=== PATIENT | female | born 1945 | race Caucasian/White ===

== ENCOUNTER 2018-04-23 10:45 | Emergency (ER) | payer MEDICARE ==
[2018-04-23] MEDS ORDERED: LORAZEPAM INJ 2 MG/1 ML VIAL IM ONE (11:14)
--- NOTE | 2018-04-23 11:15 | ER Document Report ---
ED General - General Chief Complaint: Psych Problem Stated Complaint: IVC Time Seen by Provider: 04/23/18 11:10 Mode of Arrival: Ambulatory Information source: Patient, Relative Notes: 72-year-old female with hypertension, renal disease, depression presents via private vehicle with her who is concerned for increased paranoia, increased anxiety, increased depression, auditory hallucinations and suicidal ideation. reports that since he was recently diagnosed with lung cancer the patient has become more anxious. He states that she consistently says that "they are telling me to kill my family". He reports that she has had auditory hallucinations in the past. He also states that patient has had suicidal ideation with a plan to slit her wrists. Patient is crying and repeatedly saying "no one believes me, no one believes me". Patient has had previous suicide attempts with overdosing on medications. is unsure if she has been taking her psychiatric medications. She states that she is taking citalopram. reports that her last psychiatric hospitalization was approximately 2 years ago when they lived in [place]. Patient is difficult to obtain a history. She does not answer any questions directly. She just repeatedly says "I'll only kill myself if something happens to him". TRAVEL OUTSIDE OF THE [place] IN LAST 30 DAYS: No - HPI Onset: Other Onset/Duration: Gradual, Worse Quality of pain: No pain Severity: None Associated symptoms: None Exacerbated by: Denies Relieved by: Denies Similar symptoms previously: Yes Recently seen / treated by doctor: No - Related Data Allergies/Adverse Reactions: aripiprazole [From Abilify] Allergy (Verified 04/23/18 11:11) Penicillins Allergy (Verified 04/23/18 11:11) prochlorperazine [From Compazine] Allergy (Verified 04/23/18 11:11) Past Medical History - General Information source: Patient, [facility] Records - Social History Smoking Status: Never Smoker Frequency of alcohol use: Rare Drug Abuse: None Lives with: Spouse/Significant other Family History: Reviewed & Not Pertinent Patient has suicidal ideation: Yes Patient has homicidal ideation: No - Past Medical History Cardiac Medical History: Reports: Hx Hypertension Renal/ Medical History: Denies: Hx Peritoneal Dialysis Psychiatric Medical History: Reports: Hx Depression Review of Systems - Review of Systems -: Yes ROS unobtainable due to patient's medical condition Physical Exam - Vital signs Vitals: Temp Pulse Resp BP Pulse Ox 97.4 F 83 18 168/88 H 94 04/23/18 10:53 04/23/18 10:53 04/23/18 10:53 04/23/18 10:53 04/23/18 10:53 Interpretation: Hypertensive. No: Febrile - Notes Notes: PHYSICAL EXAMINATION: GENERAL: Anxious HEAD: Atraumatic, normocephalic. EYES: Pupils equal round and reactive to light, extraocular movements intact, conjunctiva are normal. ENT: Nares patent, oropharynx clear without exudates. Moist mucous membranes. NECK: Normal range of motion, supple without lymphadenopathy LUNGS: Breath sounds clear to auscultation bilaterally and equal. No wheezes rales or rhonchi. HEART: Regular rate and rhythm without murmurs ABDOMEN: Soft, nontender, nondistended abdomen. No guarding, no rebound. No masses appreciated. Female : deferred Musculoskeletal: Normal range of motion, no pitting or edema. No cyanosis. NEUROLOGICAL: Cranial nerves grossly intact. Normal speech, normal gait. Normal sensory, motor exams PSYCH: Tearful, unable to direct. SKIN: Warm, Dry, normal turgor, no rashes or lesions noted. Course - Re-evaluation Re-evalutation: Laboratory 04/23/18 04/23/18 04/23/18 12:40 12:40 13:15 WBC 9.9 RBC 4.62 Hgb 13.6 Hct 39.8 MCV 86 MCH 29.4 MCHC 34.1 RDW 13.6 Plt Count 228 Seg Neutrophils % 68.4 Lymphocytes % 20.3 Monocytes % 8.5 Eosinophils % 2.1 Basophils % 0.7 Absolute Neutrophils 6.8 Absolute Lymphocytes 2.0 Absolute Monocytes 0.8 Absolute Eosinophils 0.2 Absolute Basophils 0.1 Sodium 139.4 Potassium 4.6 Chloride 107 Carbon Dioxide 24 Anion Gap 8 BUN 23 H Creatinine 0.92 Est GFR ( Amer) > 60 Est GFR (Non-Af Amer) > 60 Glucose 98 Calcium 9.1 Total Bilirubin 0.9 Direct Bilirubin 0.5 H Neonat Total Bilirubin Not Reportable Neonat Direct Bilirubin Not Reportable Neonat Indirect Bili Not Reportable AST 32 ALT 31 Alkaline Phosphatase 114 Total Protein 7.5 Albumin 4.0 Urine Color YELLOW Urine Appearance CLEAR Urine pH 5.0 Ur Specific [place] 1.015 Urine Protein NEGATIVE Urine Glucose (UA) NEGATIVE Urine Ketones NEGATIVE Urine Blood NEGATIVE Urine Nitrite NEGATIVE Urine Bilirubin NEGATIVE Urine Urobilinogen NEGATIVE Ur Leukocyte Esterase TRACE H Urine WBC (Auto) 4 Urine RBC (Auto) 1 U Hyaline Cast (Auto) 1 Squamous Epi Cells Auto <1 Urine Mucus (Auto) RARE Urine Ascorbic Acid NEGATIVE Salicylates < 1.0 L Urine Opiates Screen Urine Methadone Screen Acetaminophen < 10 L Ur Barbiturates Screen Ur Phencyclidine Scrn Ur Amphetamines Screen U Benzodiazepines Scrn Urine Cocaine Screen U Marijuana (THC) Screen Serum Alcohol < 10 04/23/18 13:15 WBC RBC Hgb Hct MCV MCH MCHC RDW Plt Count Seg Neutrophils % Lymphocytes % Monocytes % Eosinophils % Basophils % Absolute Neutrophils Absolute Lymphocytes Absolute Monocytes Absolute Eosinophils Absolute Basophils Sodium Potassium Chloride Carbon Dioxide Anion Gap BUN Creatinine Est GFR ( Amer) Est GFR (Non-Af Amer) Glucose Calcium Total Bilirubin Direct Bilirubin Neonat Total Bilirubin Neonat Direct Bilirubin Neonat Indirect Bili AST ALT Alkaline Phosphatase Total Protein Albumin Urine Color Urine Appearance Urine pH Ur Specific [place] Urine Protein Urine Glucose (UA) Urine Ketones Urine Blood Urine Nitrite Urine Bilirubin Urine Urobilinogen Ur Leukocyte Esterase Urine WBC (Auto) Urine RBC (Auto) U Hyaline Cast (Auto) Squamous Epi Cells Auto Urine Mucus (Auto) Urine Ascorbic Acid Salicylates Urine Opiates Screen NEGATIVE Urine Methadone Screen NEGATIVE Acetaminophen Ur Barbiturates Screen NEGATIVE Ur Phencyclidine Scrn NEGATIVE Ur Amphetamines Screen NEGATIVE U Benzodiazepines Scrn NEGATIVE Urine Cocaine Screen NEGATIVE U Marijuana (THC) Screen NEGATIVE Serum Alcohol Head CT 04/23/18 11:13 IMPRESSION: NORMAL BRAIN CT WITHOUT CONTRAST. EVIDENCE OF ACUTE STROKE: NO. 72-year-old female with hypertension, renal disease, depression presents via private vehicle with her who is concerned for increased paranoia, increased anxiety, increased depression, auditory hallucinations and suicidal ideation. reports that since he was recently diagnosed with lung cancer the patient has become more anxious. He states that she consistently says that "they are telling me to kill my family". He reports that she has had auditory hallucinations in the past. He also states that patient has had suicidal ideation with a plan to slit her wrists. Patient is crying and repeatedly saying "no one believes me, no one believes me". Patient has had previous suicide attempts with overdosing on medications. [facility]VS upon arrival. 04/23/18 15:01 IVC paperwork initiated. Patient evaluated by psych team. 2 mg of Ativan IM was administered. On reevaluation patient is calmer, resting comfortably. Continues to have paranoid delusions of admitting to committing a murder that she does not think she committed. 04/23/18 15:28 Patient medically cleared. 04/23/18 22:35 Patient accepted to psychiatric facilty. Home medications verified by pharmy and ordered. I did not continue the patient's home Lunesta. Patiwtent has remain stable and cooperative throughout her ED course. Transfer likely tomorrow. 04/23/18 22:38 - Vital Signs Vital signs: Temp Pulse Resp BP Pulse Ox 97.4 F 83 18 168/88 H 94 04/23/18 10:53 04/23/18 10:53 04/23/18 10:53 04/23/18 10:53 04/23/18 10:53 - Laboratory Result Diagrams: 04/23/18 12:40 04/23/18 12:40 Laboratory results interpreted by me: 04/23/18 04/23/18 12:40 13:15 BUN 23 H Direct Bilirubin 0.5 H Ur Leukocyte Esterase TRACE H Salicylates < 1.0 L Acetaminophen < 10 L - Diagnostic Test Radiology reviewed: Image reviewed, Reports reviewed - EKG Interpretation by Me EKG shows normal: Sinus rhythm Rate: Normal Rhythm: NSR When compared to previous EKG there are: Previous EKG unavailable Discharge - Discharge Clinical Impression: Suicidal ideation, Paranoid delusion, Elevated blood pressure reading Condition: Good Disposition: PSYCH HOSP/UNIT Forms: Elevated Blood Pressure
--- NOTE | 2018-04-23 12:10 | RADIOLOGY REPORT (SQ) ---
EXAM DESCRIPTION: CT HEAD WITHOUT COMPLETED DATE/TIME: 04/23/2018 11:57 am REASON FOR STUDY: questionable dementia COMPARISON: None. TECHNIQUE: Axial images acquired through the brain without intravenous contrast. Images reviewed wi th bone, brain and subdural windows. Images stored on PACS. All CT scanners at this facility use dose modulation, iterative reconstruction, and/or weight based d osing when appropriate to reduce radiation dose to as low as reasonably achievable (ALARA). [facility]: Dose Right [facility]: CareDose [facility]: Dose Right [facility]: Teradose 4D [facility]: Sumerian RADIATION DOSE: CT Rad equipment meets quality standard of care and radiation dose reduction techniq ues were employed. CTDIvol: 53.2 mGy. DLP: 1070 mGy-cm. mGy. LIMITATIONS: None. FINDINGS: VENTRICLES: Normal size and contour. CEREBRUM: No masses. No hemorrhage. No midline shift. No evidence for acute infarction. Normal gra y/white matter differentiation. No areas of low density in the white matter. CEREBELLUM: No masses. No hemorrhage. No alteration of density. No evidence for acute infarction. EXTRAAXIAL SPACES: No fluid collections. No masses. ORBITS AND GLOBE: No intra- or extraconal masses. Normal contour of globe without masses. CALVARIUM: No fracture. PARANASAL SINUSES: No fluid or mucosal thickening. SOFT TISSUES: No mass or hematoma. OTHER: No other significant finding. IMPRESSION: NORMAL BRAIN CT WITHOUT CONTRAST. EVIDENCE OF ACUTE STROKE: NO. COMMENT: Quality ID # [id number]: Final reports with documentation of one or more dose reduction techniques (e.g., Automated exposure control, adjustment of the mA and/or kV according to patient size, use of iterative reconstruction technique) TECHNICAL DOCUMENTATION: JOB ID: [id number] [employer]- All Rights Reserved Reading location - IP[facility]workstation [facility]: [email or web address]
[2018-04-23 12:52] LABS: ABSOLUTE BASOPHILS # (AUTO) 0.1 10^3/uL (0.0-0.2); ABSOLUTE EOSINOPHILS # (AUTO) 0.2 10^3/uL (0.0-0.6); ABSOLUTE MONOCYTES (AUTO) 0.8 10^3/uL (0.1-1.4); ABSOLUTE NEUT (AUTO) 6.8 10^3/uL (1.7-8.2); BASOPHILS % (AUTO) 0.7 % (0-2); EOSINOPHILS % (AUTO) 2.1 % (0-6); HEMATOCRIT 39.8 % (36.0-47.0); HEMOGLOBIN 13.6 g/dL (12.0-15.5); LYMPHOCYTES % (AUTO) 20.3 % (13-45); MEAN CORPUSCULAR HEMOGLOBIN 29.4 pg (27.0-33.4); MEAN CORPUSCULAR HGB CONC 34.1 g/dL (32.0-36.0); MEAN CORPUSCULAR VOLUME 86 fl (80-97); MONOCYTES % (AUTO) 8.5 % (3-13); PLATELET COUNT 228 10^3/uL (150-450); RED BLOOD COUNT 4.62 10^6/uL (3.72-5.28); RED CELL DISTRIBUTION WIDTH 13.6 % (11.5-14.0); SEGMENTED NEUTROPHILS % (AUTO) 68.4 % (42-78); TOTAL CELLS COUNTED % (AUTO) 100 %; WHITE BLOOD COUNT 9.9 10^3/uL (4.0-10.5)
--- NOTE | 2018-04-23 13:09 | EKG REPORT ---
SEVERITY:- NORMAL ECG - SINUS RHYTHM : Confirmed by: German Edwards MD 23-Apr-2018 13:08:55
[2018-04-23 13:14] LABS: ACETAMINOPHEN < 10 ug/mL (10-30); ALANINE AMINOTRANSFERASE 31 U/L (9-52); ALCOHOL < 10 mg/dL (NONE DETECTED); ALKALINE PHOSPHATASE 114 U/L (38-126); ANION GAP 8 (5-19); ASPARTATE AMINO TRANSFERASE 32 U/L (14-36); BILIRUBIN,DIRECT 0.5 mg/dL (0.0-0.4); BILIRUBIN,TOTAL 0.9 mg/dL (0.2-1.3); BLOOD UREA NITROGEN 23 mg/dL (7-20); CALCIUM 9.1 mg/dL (8.4-10.2); CARBON DIOXIDE 24 mmol/L (22-30); CHLORIDE 107 mmol/L (98-107); GLUCOSE 98 mg/dL (75-110); POTASSIUM 4.6 mmol/L (3.6-5.0); SALICYLATE < 1.0 mg/dL (2.0-20.0); SODIUM 139.4 mmol/L (137-145); TOTAL PROTEIN 7.5 g/dL (6.3-8.2)
[2018-04-23 13:37] LABS: APPEARANCE,URINE CLEAR; BILIRUBIN,URINE NEGATIVE (NEGATIVE); COLOR,URINE YELLOW; GLUCOSE, URINE NEGATIVE (NEGATIVE); KETONES,URINE NEGATIVE (NEGATIVE); LEUKOCYTE ESTERASE,URINE TRACE (NEGATIVE); NITRITE,URINE NEGATIVE (NEGATIVE); PROTEIN,URINE NEGATIVE (NEGATIVE); URINE SPECIFIC GRAVITY 1.015; UROBILINOGEN,URINE NEGATIVE mg/dL (<2.0)
[2018-04-23 13:52] LABS: URINE AMPHETAMINES SCREEN NEGATIVE; URINE BARBITURATES SCREEN NEGATIVE; URINE BENZODIAZEPINES SCREEN NEGATIVE; URINE COCAINE SCREEN NEGATIVE; URINE METHADONE SCREEN NEGATIVE; URINE PHENCYCLIDINE SCREEN NEGATIVE
[2018-04-23 14:02] LABS: URINE MARIJUANA (THC) SCREEN NEGATIVE
[2018-04-23] MEDS ORDERED: ALPRAZOLAM 0.5 MG TABLET PO PRN ×2 (18:51→19:10)
[2018-04-23] MEDS: CARVEDILOL 12.5 MG TABLET PO SCH (22:51)
[2018-04-23] MEDS ORDERED: BUPROPION HCL 75 MG TABLET ONE (22:52)
[2018-04-23] MEDS: BUPROPION HCL 75 MG TABLET PO SCH (23:01)
[2018-04-24] MEDS ORDERED: LANSOPRAZOLE 15 MG TAB.RAP.DR PO SCH (06:00)
--- NOTE | 2018-04-24 07:30 | PSYCHOLOGICAL NOTE ---
Psych Note - Psych Note Psych Note: Reason for Consult: psychosis 72-year-old female with hypertension, renal disease, depression presents via private vehicle with her who is concerned for increased paranoia, increased anxiety, increased depression, auditory hallucinations and suicidal ideation. Patient is observed sitting in the lobby with uncontrolled crying Patient is observed to be calmer (patient was given medication previously). She reports "I don't want to be here" and disclosed she has a headache and stressed. She disclosed her is sick and "someone is out to kill me because I confessed to murders I didn't do....I now know I didn't kill them...I don't know why I confessed to doing it...they wont believe me....I'm not paranoid, they are going to kill me because of it....no one believes....I don't want tot be here" Patient became very agitated so clinician ended evaluation. While patient was being processed through [facility] to get a room, the clinician spoke to the patient's privately. He disclosed the patient has a long history of mental health with 4 previous inpatient treatment stays while they lived in [place]. He reports they moved down here to [place] this last July to be closer to their son and to give the patient a fresh start. He reports the patient has been doing really well but unfortunately he was been diagnosis with lung cancer and will be starting chemotherapy and the patient has not been able to cope with the news. He continued to disclose since the patient found out she has been crying uncontrollably, with an increase of her long standing symptoms. HE disclosed the patient, "many years ago", went to the police and confessed she committed mass murder. He reports this is untrue but; "she really believed that she did." Since that time, the patient has evolved into believing people are now trying to kill her and the family because of the fictional murders. He reports he has many different diagnoses over the years by different doctors so doesn't really know what the patient has. Patient is alert and orientated to person, place and time. Mood is anxious with tearful affect. Patient denies suicidal and homicidal ideation. Paranoid delusions are noted and thought content is fixated on her delusions. thought processes are organized and linear however illogical. eye contact was good. conversational speech started normal then became difficult to understand because of crying. intellectual abilities appear to be average range. concentration and attention are poor. insight, judgment and impulse control or poor. 298.9 (F29) unspecified psychosis Impression/Plan: Patient is recommended for IVC. Patient discloses paranoid delusions and visibly distraught. Patient was accepted to [facility]; transport will occur tomorrow morning. Dr. Rene was consulted on the care and management of this patient; attending physician is in agreement with recommendations and disposition.
[2018-04-24] MEDS ORDERED: BUPROPION HCL 100 MG TABLET PO SCH (08:00)
[2018-04-24] MEDS: BUPROPION HCL 75 MG TABLET PO SCH (09:03)
[2018-04-24] MEDS: CARVEDILOL 12.5 MG TABLET PO SCH (09:03)
--- NOTE | 2018-04-24 09:19 | ER Document Report ---
Doctor's Note Notes: 04/24/18 09:18 Patient hemodynamically stable. She is upset over her getting chemotherapy. I have reviewed the prior notes. Patient is stable for transfer to psychiatric facility
[2018-04-24 09:24] VITALS: BP 142/91
[2018-04-24] MEDS ORDERED: (PENDING PHARMACY ID) (Citalopram Hydrobromide [Celexa 40 Mg Tablet] 40 MG) PO SCH (10:00)
[2018-04-24] MEDS ORDERED: CITALOPRAM HYDROBROMIDE 20 MG TABLET PO SCH (10:00)
--- NOTE | 2018-04-24 11:04 | PSYCHOLOGICAL NOTE ---
Psych Note - Psych Note Psych Note: Reason for Consult: psychosis Clinician conducted check-in with patient: Patient is anxious with tearful affect. Patient is alert and oriented to person , place and time. Patient denies wanting to hurt herself or anyone else. Patient is adamant that "someone" is trying to kill her but can not offer any other details. Eye contact was good. Conversational speech is in the normal range and tone. Intellectual abilities appear to be average range. Concentration and attention are poor. Insight, judgment and impulse control are poor. Diagnosis: 298.9 (F29) unspecified psychosis Impression/Plan: Patient was transported to [facility] in [place], [place]. Dr. Rene was consulted on the care and management of this patient; attending physician is in agreement with recommendations and disposition.
== END 2018-04-24 09:22 ==
LOC: EDBD 10:45 → ER 10:45
DX: R45.851 Suicidal ideations (principal); F22 Delusional disorders; F29 Unspecified psychosis not due to a substance or known physiological condition; I10 Essential (primary) hypertension; N28.9 Disorder of kidney and ureter, unspecified; F32.9 Major depressive disorder, single episode, unspecified
CPT/HCPCS: 93005; 99285; 96372; 36415; 80307 ×4; 85025; 80053; 81001; 70450; 93010; A9270 ×7; J2060